=== PATIENT | male | born 1990 | race American Indian/Alaskan Native ===

== ENCOUNTER 2017-05-01 03:59 | Emergency (ER) | payer OTHER ==
[2017-05-01 05:09] LABS: Bacteria,Urine 1+ /HPF (Negative); Bilirubin,Urine NEG (Negative); Blood,Urine NEG (Negative); Ketones,Urine NEG (Negative); Leukocyte Esterase,Urine NEG (Negative); Mucus,Urine FEW /HPF; Nitrite,Urine NEG (Negative); Protein,Urine <15 mg/dL mg/dL (Negative); Urobilinogen,Urine < 2.0 mg/dL (<2.0)
[2017-05-01] MEDS ORDERED: XYLOCAINE 1% MPF 5 mL INFILTRATI ONE (06:29)
[2017-05-01] MEDS ORDERED: ROCEPHIN IM ONE (06:29)
[2017-05-01] MEDS ORDERED: ZITHROMAX PO ONE (06:30)
--- NOTE | 2017-05-01 06:54 | Emergency Department Report ---
ED Male HPI - General Chief complaint: Urogenital-Male Stated complaint: PENILE DISCOMFORT Time Seen by Provider: 05/01/17 06:00 Source: patient Mode of arrival: Ambulatory Limitations: No Limitations - History of Present Illness Initial comments: 26 YO MALE WITH PENILE DISCHARGE LAST WEEK NOW RESOLVED. IT WAS CLEAR. HE DOES NOT HAVE TESTICULAR OR PENILE PAIN OR PENILE BLISTERS. BUT IS HAVING A DISCOMFORT IN IN PENIS WHICH IS NOT NORMAL. HE IS SEXUALLY ACTIVE AND DOES NOT USE CONDOMS OR ANY OTHER PROTECTION. NO PRIOR SEXUALLY TRANSMITTED DISEASE. MD Complaint: penile discharge (WHITE FOR 1 WEEK) -: Gradual, week(s) (1) Location: penis Radiation: none Severity scale (0 -10): 0 Consistency: now resolved, other (FUNNY FEELING IN PENIS) Worsens with: none discharge - Related Data Sexually active: Yes Previous Rx's Medication Instructions Recorded Last Taken Type Doxycycline [Vibramycin CAP] 100 mg PO Q12HR #14 capsule 01/12/16 Unknown Rx Allergies Allergy/AdvReac Type Severity Reaction Status Date / Time No Known Allergies Allergy Verified 01/12/16 12:02 ED Review of Systems ROS: Stated complaint: PENILE DISCOMFORT Other details as noted in HPI Constitutional: denies: chills, fever Eyes: denies: eye pain, eye discharge, vision change ENT: denies: ear pain, throat pain Respiratory: denies: cough, shortness of breath, wheezing Cardiovascular: denies: chest pain, palpitations Endocrine: no symptoms reported Gastrointestinal: denies: abdominal pain, nausea, diarrhea Genitourinary: discharge (PENILE -WHITE). denies: urgency, dysuria Musculoskeletal: denies: back pain, joint swelling, arthralgia Skin: denies: rash, lesions Neurological: denies: headache, weakness, paresthesias Psychiatric: denies: anxiety, depression Hematological/Lymphatic: denies: easy bleeding, easy bruising ED Past Medical Hx - Past Medical History Previous Medical History?: Yes Additional medical history: SEXUALLY ACTIVE - Surgical History Past Surgical History?: Yes Additional Surgical History: CIRCUMCISION - Social History Smoking Status: Current Every Day Smoker Substance Use Type: None - Medications Home Medications: Home Medications Medication Instructions Recorded Confirmed Last Taken Type Doxycycline [Vibramycin CAP] 100 mg PO Q12HR #14 capsule 01/12/16 Unknown Rx ED Physical Exam - General Limitations: No Limitations General appearance: alert, in no apparent distress - Head Head exam: Present: atraumatic, normocephalic - Eye Eye exam: Present: normal appearance - ENT ENT exam: Present: mucous membranes moist - Neck Neck exam: Present: normal inspection - Respiratory Respiratory exam: Present: normal lung sounds bilaterally. Absent: respiratory distress - Cardiovascular Cardiovascular Exam: Present: regular rate, normal rhythm. Absent: systolic murmur, diastolic murmur, rubs, gallop - GI/Abdominal GI/Abdominal exam: Present: soft, normal bowel sounds. Absent: distended, tenderness - Rectal Rectal exam: Present: deferred - exam: Present: normal inspection, circumcision. Absent: testicular tenderness, urethral discharge, scrotal swelling, vertical testicular lie External exam: Present: normal external exam. Absent: erythema, swelling, lesions, lacerations, ecchymosis, bleeding - Extremities Exam Extremities exam: Present: normal inspection - Back Exam Back exam: Present: normal inspection - Neurological Exam Neurological exam: Present: alert, oriented X3 - Psychiatric Psychiatric exam: Present: normal affect, normal mood - Skin Skin exam: Present: warm, dry, intact, normal color. Absent: rash ED Course Vital Signs 05/01/17 04:06 Temperature 97.7 F Pulse Rate 92 H Respiratory 18 Rate Blood Pressure 125/71 O2 Sat by Pulse 99 Oximetry Critical care attestation.: If time is entered above; I have spent that time in minutes in the direct care of this critically ill patient, excluding procedure time. ED Disposition Clinical Impression: STD (sexually transmitted disease) Disposition: DC-01 TO HOME OR SELFCARE Is pt being admited?: No Does the pt Need Aspirin: No Condition: Stable Instructions: Sexually Transmitted Diseases (ED), Safe Sex (ED) Additional Instructions: PLEASE GET AN HIV AND SYPHILLIS TESTING AT THE HEALTH DEPARTMENT OR YOUR OWN DOCTOR Referrals: PRIMARY MD WALTER [Primary Care Provider] - 3-5 Days [facility] [Outside] - 3-5 Days [facility] [Outside] - 3-5 Days Time of Disposition: 07:15
[2017-05-01 08:22] VITALS: BP 122/55
== END 2017-05-01 08:23 | disposition home or self-care (01) ==
LOC: ED 03:59
DX: A64 Unspecified sexually transmitted disease (principal); F17.200 Nicotine dependence, unspecified, uncomplicated
CPT/HCPCS: 81001; 87591; 96372; 99283; J0696